=== PATIENT | male | born 1940 | race Hispanic/Latino ===

== ENCOUNTER 2020-08-24 05:40 | Day surgery (SDC) | payer MEDICARE, OTHER ==
[~2020-08-24] VITALS: Ht 162.6 cm; Wt 72.4 kg
[~2020-08-24 05:40] MED LIST: LEVOTHYROXINE75 MCG PO; LOSARTAN POTAS100 MG PO; MULTIPLE VITAM1 EAC1 PO; OMEPRAZOLE20 MG PO
[2020-08-24] MEDS ORDERED: VITAMIN D3 COM1 EACH PO (05:57)
--- NOTE | 2020-08-24 08:58 | NUR ---
08/24/20 0858 Elva Mcdermott 0835 PT ARRIVED IN PACU NON RESPONSIVE TO NOXIOUS STIMULI. RN HOLDING AIRWAY OPEN WITH CHIN LIFT. 0845 PT REACTIVE. 0846 REPOSITIONED TO R SIDE PER DR ORDERS FOR 20 MINUTES. 0858 NO C/O'S AT THIS TIME.
--- NOTE | 2020-08-24 09:15 | NUR ---
PT ARRIVED FROM PACU. REPORT RECIEVED FROM LURDES Olivares RN. PT LAYING ON LEFT SIDE IN LOCKED AND LOWERED BED. SIDE RAILS UP. AT THE BEDSIDE. CALL LIGHT WITHIN REACH.
--- NOTE | 2020-08-24 09:26 | NUR ---
PT MOVED TO STOMACH.
--- NOTE | 2020-08-24 09:44 | NUR ---
PT USED CALL LIGHT FOR NEED TO URINATE. MOVED PT TO BACK, REMOVED CATHETER AND MITOMYCIN. PT GOWN CHANGED. RESTING IN LOCKED AND LOWERED BED. SIDE RAILS UP, CALL LIGHT WITHIN REACH. AT THE BEDSIDE.
--- NOTE | 2020-08-24 09:58 | NUR ---
PT ALERT, ORIENTED AND SUPPORTED BY HIS . SPOUSE HAS FEAR OF COVID IN HOSP AND IS RATHER ANXIOUS BEING HERE TODAY.ANSWERED QUESTIONS, GAVE ENCOURAGEMENT AND PT REQUESTED PRAYER. WILL FOLLOW NEEDED
[2020-08-24] MEDS ORDERED: BACTRIM DS TAB1 EACH PO (10:34)
[2020-08-24] MEDS ORDERED: NORCO 5-325 TA1 EACH PO (10:35)
--- NOTE | 2020-08-24 10:57 | NUR ---
PT LEFT THE UNIT VIA WHEELCHAIR. TRANSFERRED IDEPENDENTLY FROM WHEELCHAIR TO VEHICLE WITH NO COMPLICATIONS. PROVIDED TRANSPORTATION
--- NOTE | 2020-08-24 18:19 | OR ---
[facility] [address] [facility] [place] [address] Signed DATE OF OPERATION: 08/24/2020 SURGEON: Alok Humphries MD PREOPERATIVE DIAGNOSES: 1. Gross hematuria. 2. 1.5 cm papillary bladder mass. POSTOPERATIVE DIAGNOSES: 1. Gross hematuria. 2. 1.5 cm papillary bladder mass. NAME OF THE PROCEDURES: 1. Transurethral resection of bladder tumor-small. 2. Intravesical instillation of mitomycin chemotherapy. ANESTHESIA: General. ESTIMATED BLOOD LOSS: Minimal. COMPLICATIONS: None. SPECIMENS: Fragments of papillary bladder tumor located just superior to the right ureteral orifice sent to pathology for evaluation. DRAINS: A 20-Paraguayan two-way Machado catheter, capped and taped to the patient's abdomen after and instillation of mitomycin. INDICATIONS FOR PROCEDURE: Mr. Wharton is a very pleasant 80-year-old gentleman, who presented to my clinic a couple of months ago with complaints of intermittent bouts of painless gross hematuria. Urinary cytology at that time was negative. He underwent a diagnostic cystoscopy, which revealed the presence of a 1.5 cm papillary mass located just superior to the right ureteral orifice. No other masses were noted at the time. He presents today to undergo definitive treatment of the lesion via resection, along with instillation of the Electronically Signed By: ALKO HUMPHRIES MD 08/24/20 1819 PATIENT NAME: SANDIE WHARTON OPERATIVE REPORT DATE OF : 42 REPORT #: [id number] PHYSICIAN: ALOK HUMPHRIES MD PCP: BOOM ALEMAN MD REPORT IS CONFIDENTIAL AND NOT TO BE RELEASED WITHOUT AUTHORIZATION [facility] [address] [place], [place] [address] Signed intravesical mitomycin. OPERATIVE FINDINGS: 1. On cystoscopy, there is a 1.5 cm pedunculated mass located just superior to the right ureteral orifice. This mass was resected using a 24-Paraguayan bipolar loop without difficulty. 2. IV fluorescein dye was used to identify efflux from the right ureteral orifice. Ultimately, there was more than adequate efflux noted from the right ureteral orifice after resection, so the decision was made to not place an indwelling ureteral stent on that side. 3. At the end of the resection, a 20-Paraguayan two-way Machado catheter was inserted into the patient's bladder and was mainly irrigated. 40 mg of mitomycin in 20 mL of solution was then instilled into the patient's bladder via the 20-Paraguayan Machado catheter. The installation took place at 8:26 a.m. The catheter was then capped and then taped to the patient's abdomen. DESCRIPTION OF PROCEDURE: After informed consent was obtained, the patient was taken back to the operating room. He was transferred from the [facility] to the operating room table, where general anesthesia was induced. He was placed in the dorsal lithotomy position. His genitalia prepped and draped in a standard sterile fashion. The patient's urethra was then dilated from 14-Paraguayan to 28-Paraguayan using Kaycee sounds without difficulty. A 26-Paraguayan sheath was then inserted through the patient's urethra and into the bladder using a visual obturator. Once the sheath was placed, the obturator was switched out for the resectoscope. Thorough diagnostic cystoscopy was performed. Attention was turned to the pedunculated papillary mass located just superior to the right ureteral orifice. A 24-Paraguayan bipolar loop was then used to resect the mass. Resection was performed without difficulty. All the while, the location of the right ureteral orifice was noted and the UO was avoided. Once the resection was complete, the area was cauterized in order to obtain hemostasis. The area near the right ureteral orifice was not cauterized to prevent any accidental fusion of the right ureteral orifice. The patient's bladder was then irrigated with a Tank to obtain all of the specimen. The fragments of tumor were then placed in a specimen cup and sent to pathology for evaluation. IV fluorescein dye was administered in order to more adequately visualize efflux from the right ureter. Again, I was able to visually watch multiple efflux from the right ureteral orifice. I therefore made the decision not to insert an indwelling right ureteral stent. Once I was satisfied that hemostasis had been achieved, and maintained, and all the bladder tumor was removed, the 26-Paraguayan sheath was then removed from the patient's bladder. I then inserted a 20-Paraguayan two-way Machado catheter into the patient's bladder and again manually irrigated the bladder. I then instilled the 40 mg in 20 mL of mitomycin into the patient's bladder using the indwelling Machado catheter. The catheter was then capped and then secured to the patient's abdomen. The procedure was then terminated. The Electronically Signed By: ALOK HUMPHRIES MD 08/24/20 1152 PATIENT NAME: SANDIE WHARTON OPERATIVE REPORT DATE OF : 42 REPORT #: [id number] PHYSICIAN: ALOK HUMPHRIES MD PCP: BOOM ALEMAN MD REPORT IS CONFIDENTIAL AND NOT TO BE RELEASED WITHOUT AUTHORIZATION [address] [address] Signed patient tolerated the procedure well without any complication. He will now be transferred to the postanesthesia care unit in stable condition. DISPOSITION: I discussed the details of today's procedure with the patient's and answered all of her questions. The catheter will be removed at the end of the mitomycin therapy. He will then be given a voiding trial to be sure he voids prior to discharge. He will be sent home today with [place] 5/325 dispensed #20 as needed for pain along with Bactrim double strength one tablet p.o. b.i.d. for a total of 7 days. He has been scheduled to return to the clinic on September 21 at 4 p.m. for postop check. 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 MD KAITA Muro/LUZ /[id number] Copies: ~ Electronically Signed By: ALOK HUMPHRIES MD 08/24/20 1819 PATIENT NAME: SANDIE WHARTON OPERATIVE REPORT DATE OF : 42 REPORT #: [id number] PHYSICIAN: ALOK HUMPHRIES MD PCP: BOOM ALEMAN MD REPORT IS CONFIDENTIAL AND NOT TO BE RELEASED WITHOUT AUTHORIZATION
--- NOTE | 2020-08-26 11:25 | PATH ---
[facility] [address] [facility], [place] [address] Signed SPECIMEN(S): A BLADDER TUMOR, SUPERIOR TO RUQ SPECIMEN SOURCE: A. BLADDER TUMOR, SUPERIOR TO RUQ CLINICAL HISTORY: Pre: Gross hematuria. Post: Bladder tumor. FINAL PATHOLOGIC DIAGNOSIS: Bladder tumor, superior to right upper quadrant, transurethral resection: - Noninvasive high-grade papillary urothelial carcinoma: - Lamina propria invasion: Not identified. - Muscularis propria (detrusor muscle): Present and is not involved by the carcinoma. - Lymphovascular invasion: Not identified. - See comment. COMMENT: As part of [facility]' Quality Improvement Program, this case was reviewed by another member of our pathology staff. The results are called to Dr. Harris' office by [facility]'s client services department on 08/26/2020. Based on the biopsy tissue present, the features correspond to a pathologic stage of attorney lawyer. The patient's most recent voided urinary cytology from 05/27/2020 ([id number]) was reviewed and confirmed to be absent of cytologic features of high grade urothelial neoplasia. NAL:CANDE:cml:C1NR MICROSCOPIC EXAMINATION: Histologic sections of all submitted blocks are examined by light microscopy. These findings, together with the gross examination, support the pathologic diagnosis. GROSS DESCRIPTION: The specimen, labeled "DM," and designated on the requisition "bladder tumor superior to right uo," is received in formalin and consists of multiple fragments of pink-herman soft tissue (2.0 x 1.7 x 0.5 cm in aggregate). The specimen is submitted entirely in cassette (A1). AC (under the direct supervision of a pathologist) The Gross Description was prepared using a voice recognition system. The PATIENT NAME: SANDIE WHARTON PATHOLOGY DATE OF : 42 REPORT #: [id number] PHYSICIAN: DE[facility]O PATHOLOG[facility] PCP: BOOM ALEMAN MD REPORT IS CONFIDENTIAL AND NOT TO BE RELEASED WITHOUT AUTHORIZATION [facility] [address] [place] [address] Signed report was reviewed for accuracy; however, sound-alike word errors, addition and/or deletions may occur. If there is any question about this report, please contact Client Services. PERFORMING LABORATORY: The technical component [place] [address] (Topper Packer: Cande Snyder MD; CLIA# [id number]). Professional interpretation was performed by [facility], [address] [address] (CLIA# [id number]). Diagnostician: Omayra Wylie MD Pathologist Electronically Signed 08/26/2020 Copies: ~ PATIENT NAME: SANDIE WHARTON PATHOLOGY DATE OF : 42 REPORT #: [id number] PHYSICIAN: [facility] PCP: BOOM ALEMAN MD REPORT IS CONFIDENTIAL AND NOT TO BE RELEASED WITHOUT AUTHORIZATION
== END 2020-08-24 10:50 | disposition home or self-care (01) ==
LOC: DS 05:40 → OPS 05:40 → DS 06:45 → OPS 06:45
PROVIDERS: ATTEND Urology
PROC: 0TBB8ZZ Excision of Bladder, Via Natural or Artificial Opening Endoscopic (ICD-10-PCS; principal; 2020-08-24 06:45)
DX: C67.6 Malignant neoplasm of ureteric orifice (principal); R31.0 Gross hematuria; I10 Essential (primary) hypertension; E03.9 Hypothyroidism, unspecified; K21.00 Gastro-esophageal reflux disease with esophagitis, without bleeding; E55.9 Vitamin D deficiency, unspecified; Z79.899 Other long term (current) drug therapy
CPT/HCPCS: 00914; 88307; J0696; J1100; J1885; J2405; J2704; J3010; J7121; J9280

== ENCOUNTER 2020-10-19 05:50 | Day surgery (SDC) | payer MEDICARE, OTHER ==
[~2020-10-19] VITALS: Ht 162.6 cm; Wt 75.0 kg
[~2020-10-19 05:50] MED LIST changes: +BACTRIM DS TAB1 EACH PO; +NORCO 5-325 TA1 EACH PO; +VITAMIN D3 COM1 EACH PO
--- NOTE | 2020-10-19 08:09 | NUR ---
PT ALERT, ORIENTED AND SUPPORTED BY HIS JANE. QUICKLY HAD PRAYER AND GAVE ENCOURAGEMENT TO PT AND , OR STAFF WAITING. WILL FOLLOW NEEDED
--- NOTE | 2020-10-19 09:10 | NUR ---
10/19/20 0910 Elva Mcdermott 0805 PT ARRIVED IN PACU SLEEPY WITH NO C/O/S. STENT TAPED TO PENIS SHAFT WITH STERI STRIPS. 0850 OXYGEN REMOVED. SATS 98% ON RA. TALKING WITH STAFF. NO C/O'S. 0905 TO DS. REPORT GIVEN TO CAPRI.
--- NOTE | 2020-10-19 09:13 | NUR ---
PATIENT BACK TO DAYSURGERY FROM PACU. BEDSIDE REPORT FROM LURDES FAROOQ. VISUALIZED STENT TAPED DOWN AND IN PLACE, NO DRAINAGE FROM URETHRA. PATIENT AWAKE AND ORIENTED. NO REPORTED PAIN OR NAUSEA. PROVIDED ICE WATER AND SNACKS. CALL LIGHT WITHIN REACH.
[2020-10-19] MEDS ORDERED: OXYCODONE HCL5 MG PO (09:22)
[2020-10-19] MEDS ORDERED: CIPRO500 MG PO (09:22)
--- NOTE | 2020-10-19 10:01 | NUR ---
BLOOD PRESSURE TAKEN ON LEFT ARM AFTER HIGH READING ON RIGHT: 177/93. PATIENT EDUCATED ON FOLLOWING UP WITH PCP REGARDING ELEVATED BLOOD PRESSURE. PATIENT DENIES HEADACHE. SPOUSE IS PRESENT FOR THIS EDUCATION WELL DISCHARGE INSTRUCTIONS AND BOTH VERBALIZE UNDERSTANDING. PATIENT VOIDS 225 ML BLOODY URINE AND AMBULATES WELL. HE IS GETTING DRESSED IN THE PRESENCE OF HIS SPOUSE.
--- NOTE | 2020-10-19 11:16 | OR ---
[facility] [address] [facility], [place] [address] Signed DATE OF OPERATION: 10/19/2020 SURGEON: Alok Humphries MD PREOPERATIVE DIAGNOSIS: High-grade superficial bladder cancer, status post TURBT. POSTOPERATIVE DIAGNOSES: High-grade superficial bladder cancer, status post TURBT. PROCEDURES: 1. Diagnostic cystoscopy with right retrograde pyelogram. 2. Transurethral resection of bladder tumor - small. 3. Cystoscopy with insertion of indwelling right ureteral stent. ANESTHESIA: General. ESTIMATED BLOOD LOSS: Minimal. COMPLICATIONS: None. SPECIMENS: Fragments of tissue from previous resection site, sent to pathology for evaluation. DRAINS: A 6 x 24 cm double-J ureteral stent inserted into the right ureter. INDICATIONS FOR PROCEDURE: Mr. Wharton is a very pleasant 80-year-old gentleman, who I recently diagnosed with high-grade superficial bladder tumor after undergoing initial TURBT in early August after undergoing cystoscopy for a gross hematuria workup. Cystoscopy at this time revealed 1.5 cm so sized papillary lesion present just superior to the right ureteral orifice. He has undergone TURBT with instillation of mitomycin in early August 2020. He presents today for standard repeat TURBT per protocol. He has been doing well since his initial resection and has no complaints. FINDINGS: Electronically Signed By: ALOK HUMPHRIES MD 10/19/20 1116 PATIENT NAME: SANDIE WHARTON OPERATIVE REPORT DATE OF : 42 REPORT #: [id number] PHYSICIAN: ALOK HUMPHRIES MD PCP: BOOM ALEMAN MD REPORT IS CONFIDENTIAL AND NOT TO BE RELEASED WITHOUT AUTHORIZATION [facility] [address] [place], [place] [address] Signed 1. On cystoscopy, there is a diffuse grade 2 bladder wall trabeculation. Bilateral ureteral orifices are in their normal anatomic location effluxing clear urine. The right UO has an abnormal configuration secondary to his initial resection. 2. Right retrograde pyelogram reveals a very small kink in the distal right ureter; however, there was no evidence of any filling defects or any indication of tumor present within the right ureter. 3. On closer inspection, there was velvety appearance to the area just to the left of his previous resection site. This appears to be very suspicious for tumor recurrence. This was resected and placed in a specimen cup to be sent for evaluation. 4. The remaining area around the resection site was then cauterized for both cancer control and to establish hemostasis. The right ureteral orifice remained free of any iatrogenic damage via cauterization. In fact, I cauterized all the way around the ureteral orifice, but kept the ureteral orifice intact. At the end of the procedure, a 6 x 24 cm double-J ureteral stent was inserted into the right ureter under direct visualization without difficulty. DESCRIPTION OF PROCEDURE: After informed consent was obtained, the patient was taken back to the operating room. He was transferred from the [facility] to the operating room table, where general anesthesia was induced. He was placed in the dorsal lithotomy position and his genitalia were prepped and draped in a standard sterile fashion. Using a 30-degree lens on a 23-1/2-Armenian introducer rigid cystoscope was inserted through his urethra into his bladder under direct visualization. Panendoscopic views of bladder then obtained, please see above findings. Attention was turned to the right ureteral orifice. A cone-tipped catheter was then used to perform a right retrograde pyelogram. I then removed the cystoscope and dilated the patient's urethra using [place] sounds from 20-Armenian to 28-Armenian. A visual obturator was used in to insert a 26-Armenian sheath into the patient's bladder. With the sheath in place, the resectoscope was then inserted. I then resected this area of erythema just to the left of his previous resection site. This was very close to the right ureter, however, did not involve the right ureteral orifice. Once I resected the entire area of erythema, which measured around 1 cm, I cauterized the biopsy site as well as the edges and the any remaining erythema around the right ureteral orifice. Once hemostasis was achieved and there was no additional visualized tumor, I removed the resectoscope. I then reinserted a standard cystoscope with a 22.5-Armenian introducer. I cannulated the right ureteral orifice using a 0.035 Sensor wire. Proper placement of the wire was confirmed on fluoroscopy. Over the wire, I passed a 6 x 24 cm double-J ureteral stent into the right ureteral orifice under direct visualization. The stent passed easily. The proximal and distal coils were seen on both fluoroscopy and cystoscopy at the end of the procedure. The patient's bladder was then drained and the cystoscope was removed. The procedure was then terminated. The patient tolerated the procedure well without any complication. He will now be transferred to the Postanesthesia Care Unit in stable condition. Electronically Signed By: ALOK HUMPHRIES MD 10/19/20 1116 PATIENT NAME: SANDIE WHARTON OPERATIVE REPORT DATE OF : 42 REPORT #: [id number] PHYSICIAN: ALOK HUMPHRIES MD PCP: BOOM ALEMAN MD REPORT IS CONFIDENTIAL AND NOT TO BE RELEASED WITHOUT AUTHORIZATION [address], [place] [address] Signed DISPOSITION: I discussed the details of today's procedure with the patient's and answered all of her questions. I told her that there did appear to be an area of tumor recurrence just superior and to the left to the right ureteral orifice, this was excised today successfully. He will be sent home today with oxycodone 5 mg p.o. q.4 to 6 hours p.r.n. pain, dispense #20, along with Cipro 500 mg p.o. b.i.d. for a total of 7 days. He will remove the indwelling ureteral stent using the string attached on October 24, 2020. I explained to his today that the stent was mainly placed because of this small kink in the distal right ureter, and in hopes to straighten out the distal ureter. Otherwise, there is no evidence of any hydronephrosis or calyceal dilation of the right kidney. Once he returns for his postoperative evaluation in 6 weeks, we will get him set up at that time to begin BCG induction therapy approximately 8 weeks postoperatively. MD KATIA Muro/LUZ /[id number] Copies: ~ Electronically Signed By: ALOK HUMPHRIES MD 10/19/20 1116 PATIENT NAME: SANDIE WHARTON OPERATIVE REPORT DATE OF : 42 REPORT #: [id number] PHYSICIAN: ALOK HUMPHRIES MD PCP: BOOM ALEMAN MD REPORT IS CONFIDENTIAL AND NOT TO BE RELEASED WITHOUT AUTHORIZATION
--- NOTE | 2020-10-19 13:05 | NUR ---
LE 1005: PATIENT TRANSFERS HIMESELF TO THE WHEELCHAIR AND THEN TO PERSONAL VEHICLE AND HE TOLERATES THAT WELL.
--- NOTE | 2020-10-19 18:19 | NUR ---
LE 0945: PATIENT IS UP TO THE BATHROOM WITH MY STANDBY. PATIENT AMBULATES WELL AND VOIDS 150 ML BLOODY URINE. PATIENT IS BACK IN BED. CALL LIGHT WITHIN REACH.
--- NOTE | 2020-10-20 14:14 | PATH ---
[facility] [address] [place], [place] [address] Signed SPECIMEN(S): A BLADDER LESION SPECIMEN SOURCE: A. BLADDER LESION CLINICAL HISTORY: Bladder lesion post-TURBT. Bladder cancer. 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 - Mild urothelial atypia present, favor reactive. COMMENT: As part of [facility]' Quality Improvement Program, this case was reviewed by another member of our pathology staff (CHAD). NAL:cml:C2NR MICROSCOPIC EXAMINATION: Histologic sections of all submitted blocks are examined by light microscopy. These findings, together with the gross examination, support the pathologic diagnosis. GROSS DESCRIPTION: The specimen, labeled "DM, bladder lesion," is received in formalin and consists of irregular shaped, pink-herman, rubbery tissue fragments that aggregate measure 0.8 x 0.8 x 0.3 cm. Specimen is entirely submitted in cassette (A1). JS (under the direct supervision of a pathologist) The Gross Description was prepared using a voice recognition system. The report was reviewed for accuracy; however, sound-alike word errors, addition and/or deletions may occur. If there is any question about this report, please contact Client Services. PERFORMING LABORATORY: The technical component was performed by [facility], [address] [place] [address] (Candle Maker: Cande Snyder MD; CLIA# [id number]). [facility], [address] [address] (CLIA# [id number]). PATIENT NAME: SANDIE WHARTON PATHOLOGY DATE OF : 42 REPORT #: [id number] PHYSICIAN: [facility] PCP: BOOM ALEMAN MD REPORT IS CONFIDENTIAL AND NOT TO BE RELEASED WITHOUT AUTHORIZATION [facility] [address] [place] [id number] Signed Diagnostician: Omayra Wylie MD Pathologist Electronically Signed 10/20/2020 Copies: ~ PATIENT NAME: SANDIE WHARTON PATHOLOGY DATE OF : 42 REPORT #: [id number] PHYSICIAN: [facility] PATH[facility] PCP: BOOM ALEMAN MD REPORT IS CONFIDENTIAL AND NOT TO BE RELEASED WITHOUT AUTHORIZATION
== END 2020-10-19 10:10 | disposition home or self-care (01) ==
LOC: OPS 05:50 → DS 05:50 → OPS 06:45 → DS 06:45 → OPS 10:10
PROVIDERS: ATTEND Urology
PROC: 0TBB8ZX Excision of Bladder, Via Natural or Artificial Opening Endoscopic, Diagnostic (ICD-10-PCS; principal; 2020-10-19 06:45)
PROC: 0T768DZ Dilation of Right Ureter with Intraluminal Device, Via Natural or Artificial Opening Endoscopic (ICD-10-PCS; 2020-10-19 06:45)
DX: N30.81 Other cystitis with hematuria (principal); K21.00 Gastro-esophageal reflux disease with esophagitis, without bleeding; I10 Essential (primary) hypertension; E03.9 Hypothyroidism, unspecified; Z79.890 Hormone replacement therapy; Z79.899 Other long term (current) drug therapy; Z20.828 Contact with and (suspected) exposure to other viral communicable diseases
CPT/HCPCS: 00912; 74420; 88307; C1769; C2617; J0690; J1100; J1885; J2405; J2704; J3010; J7121; Q9967

== ENCOUNTER 2023-09-04 05:40 | Day surgery (SDC) | payer MEDICARE, OTHER ==
[2023-08-30 09:17] VITALS: BP 150/88
[~2023-09-04] VITALS: Ht 162.6 cm; Wt 76.8 kg
[~2023-09-04 05:40] MED LIST changes: +CIPRO500 MG PO; +HYZAAR 100-12.1 EACH PO; -LOSARTAN POTAS100 MG PO; +OSTEO BI-FLEX1 EAC2 PO; +OXYCODONE HCL5 MG PO
[2023-09-04 05:55] VITALS: BP 155/94
--- NOTE | 2023-09-04 06:09 | NUR ---
COMFORTABLE NO QUESTIONS.
--- NOTE | 2023-09-04 07:10 | NUR ---
PT IN OVERALL GOOD SPIRITS. FEMALE MUCK MINER BLASTING IN ROOM. BOTH DENIED NEEDS AT THIS TIME. CONSENTED TO PRAYER. PRAYED FOR SUCCESSFUL PROCEDURE AND ABIDING PEACE.
--- NOTE | 2023-09-04 07:16 | NUR ---
DENIES ANY C/O AWAITING DR HUMPHRIES. TESTING AND REGULATING TECHNICIAN HAs been in to talk with pt.
--- NOTE | 2023-09-04 09:37 | NUR ---
09/04/23 0937 Deepika Fernandez 0924- PT ARRIVES TO PACU, SUPINE POSITION WITH OPA IN PLACE. MAINTAINING AIRWAY WITH JUST OPA, O2 AT 6L PER MASK. CUTLER CATHETER IN PLACE WITH CBI RUNNING, CLEAR FLUID IN OUTPUT DRAINING. ABD SOFT, NON DISTENED. ALL MONITORS APPLIED. LR INFUSING TO RW IV. BREATHING EVEN AND NON LABORED. WILL CONTINUE TO MONITOR. 0936- PT STARTED TO SWALLOW AND TAKE DEEP BREATHS, OPENS EYES TO VERBAL STIMULI. OPENS MOUTH TO REMOVE OPA, O2 REMAINS IN PLACE AT THIS TIME. DENIES PAIN AND NAUSEA.
--- NOTE | 2023-09-04 10:11 | NUR ---
PT TO FLOOR WITH CAPRI THOMSON. PT AWAKE BUT DROWSY. MINOR DISCOMFORT WITH THE CUTLER BUT NO PAIN. IN ROOM. CBI TURNED DOWN URINE IS COMPLETELY CLEAR. FINISHING IVF FROM SURG. CALL LIGHT IN REACH.
[2023-09-04 10:13] VITALS: BP 141/78
[2023-09-04] MEDS ORDERED: LEVOFLOXACIN500 MG PO (10:54)
[2023-09-04] MEDS ORDERED: OXYCODONE HCL5 MG PO (10:55)
--- NOTE | 2023-09-04 11:34 | NUR ---
pt took meds. vitals assessed. catheter draining clear. no abnormal findings. no other cares needed or requested at this time. call light within reach
--- NOTE | 2023-09-04 12:08 | OR ---
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 NAMES OF PROCEDURES: 1. Diagnostic cystoscopy. 2. Urethral dilation using [place]ell sounds from 18-Venezuelan to 28-Venezuelan. 3. Transurethral resection of the prostate. ANESTHESIA: General. ESTIMATED BLOOD LOSS: 50 mL. COMPLICATIONS: None. SPECIMENS: Prostate chips sent to pathology for evaluation. DRAINS: A 22-Venezuelan three-way Machado catheter, connected to continuous bladder irrigation. INDICATIONS FOR PROCEDURE: Mr. Wharton is a very pleasant 83-year-old gentleman who is well-known to me. He has a history of bladder cancer and has undergone a TURBT x2 with multiple cystoscopies thereafter. He has remained free of recurrence from a disease standpoint. 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 grade 3 bladder wall trabeculation. For the most part, Geoffrey reports an adequate force of stream. However, he does experience occasional urgency and frequency at times. After discussion of the risks and benefits of TURP including hemorrhage and urinary incontinence, the patient has agreed to proceed. Electronically Signed By: ALOK HUMPHRIES MD 09/04/23 1208 PATIENT NAME: GEOFFREY WHARTON OPERATIVE REPORT DATE OF : 42 REPORT #: [id number] PHYSICIAN: ALOK HUMPHRIES MD PCP: NIVIA MENDENHALL MD REPORT IS CONFIDENTIAL AND NOT TO BE RELEASED WITHOUT AUTHORIZATION [address] [address] Signed OPERATIVE FINDINGS: 1. On cystoscopy, there was no evidence of any suspicious masses, lesions, or stones. Namely, there was no evidence of any suspicious lesions consistent with bladder tumor recurrence today. His left ureteral orifice is present in its normal anatomic location. The right ureteral orifice is golf-hole in appearance which is consistent with a prior resection of the ureteral orifice performed for his bladder cancer. 2. Digital rectal examination reveals a 50-60 g prostate that is soft, smooth and symmetric with no focal nodules. 3. The patient's prostate was resected transurethrally today using a 24-Venezuelan bipolar loop. The resection was performed down to the level of the verumontanum circumferentially. 4. At the end of the procedure, a 22-Venezuelan three-way Machado catheter was inserted into the patient's bladder, connected to continuous bladder irrigation. DESCRIPTION OF PROCEDURE: After informed consent was obtained, the patient was taken back to the operating room. He was transferred from the [facility] to the operating room table, where general anesthesia was induced. He was placed in the dorsal lithotomy position and his genitalia were prepped and draped in standard sterile fashion. His urethral meatus was dilated using [place] sounds from 18-Venezuelan to 28-Venezuelan for prevention of urethral stricture associated with TURP. Diagnostic cystoscopy was initially performed using a 30-degree lens on a 22.5 Venezuelan introducer. Please see above findings. I removed the cystoscope and then injected 60 mL of sterile lubricant into the patient's urethra. This was followed by placement of the 26-Venezuelan sheath using a visual obturator. The visual obturator was then removed and exchanged for a resectoscope with a 24-Venezuelan loop. I evaluated the bilateral ureteral orifices and their location with respect to the bladder neck. They were noted to be not anywhere near the area of resection. I then began resection of the patient's large median lobe. Once this was excised, I then resected the left and lateral lobes of the prostate down to the level of verumontanum. I also circumferentially resected the bladder neck. All the while adequate hemostasis was achieved and maintained via electrocautery. Throughout the procedure, the patient's bladder was emptied of prostate chips using a Tank syringe. After majority of tissue was resected, I did switch from the loop to the bipolar button and smoothed out the prostatic urethra and again gained better hemostasis towards the end of the resection. There was a small area of bleeding on the left proximal lobe of the prostate that was probably a venous sinus. I cauterized this as best as I could. At the end of the resection, I was satisfied with my hemostasis and all of the chips had been extracted from the patient's bladder. I removed the resectoscope and placed a 0.035 Sensor wire through the sheath and into the patient's bladder. The sheath was then removed fully intact. Over the wire, I passed a 22-Venezuelan three-way Machado catheter into the patient's bladder. The catheter passed without difficulty. The balloon was filled with 30 mL of Electronically Signed By: ALOK HUMPHRIES MD 09/04/23 1208 PATIENT NAME: GEOFFREY WHARTON OPERATIVE REPORT DATE OF : 42 REPORT #: [id number] PHYSICIAN: ALOK HUMPHRIES MD PCP: NIVIA MENDENHALL MD REPORT IS CONFIDENTIAL AND NOT TO BE RELEASED WITHOUT AUTHORIZATION [address], [place] [address] Signed sterile water. I then mainly irrigated the catheter multiple times to get any remaining blood clots out from the bladder. Because of this bleeding of the venous sinus that was not stopping with cauterization, I instructed Anesthesia to administer one dose of TXA to the patient. Once the catheter was connected to continuous bladder irrigation, a digital rectal examination was performed. The procedure was then terminated. The patient tolerated the procedure well without any complication. He will now be transferred to the postanesthesia care unit in stable condition. DISPOSITION: I discussed the details of today's procedure with the patient's and answered all of her questions. He will now head to the PACU and then once he wakes up there, he will be admitted overnight to the Med-Surg unit for management of his continuous bladder irrigation. His diet will be restarted and he will be given pain control as needed. His CBI will be slowly weaned off by tomorrow morning where he will be discharged to home with a Machado catheter gravity drainage. He has been scheduled to undergo a voiding trial this at 11:00 a.m. He has also been scheduled to see me for his 1st postop followup on October 19, 2023. MD KATIA Muro/LUZ /[id number] Copies: ~ Electronically Signed By: ALOK HUMPHRIES MD 09/04/23 1208 PATIENT NAME: GEOFFREY WHARTON SUYAPA OPERATIVE REPORT DATE OF : 42 REPORT #: [id number] PHYSICIAN: ALOK HUMPHRIES MD PCP: NIVIA MENDENHALL MD REPORT IS CONFIDENTIAL AND NOT TO BE RELEASED WITHOUT AUTHORIZATION
[2023-09-04 12:19] VITALS: BP 166/80
--- NOTE | 2023-09-04 12:37 | NUR ---
pt is currently in bed watching tv. vitals assessed. no abnormalities. pt morales drainage was at 1725ml. clear color. no other cares requested or needed. call light within reach
[2023-09-04 13:26] VITALS: BP 145/90
--- NOTE | 2023-09-04 13:28 | NUR ---
pt is currently eating. vital signs assessed. no other cares needed or requested at this time. call light within reach
--- NOTE | 2023-09-04 14:05 | NUR ---
PATIENT RESTING IN BED.DISCUSSED THE DISCHARGE PLAN WITH PATIENT. IF MEDICALLY STABLE THE PATIENT WILL GO HOME TOMORROW. PATIENT HAS FRIENDS AND FAMILY WHO HELP NEEDED. PATIENT DOES NOT USE DME. PATIENT DRIVES AND IS ABLE TO AFFORD FOOD AND RENT. PATIENT DOES NOT HAVE DC NEEDS AT THIS TIME. DC ELECT[employer]ICS WARFARE TECHNICIAN WILL MONITOR NEEDED.
--- NOTE | 2023-09-04 15:22 | NUR ---
ASSESSMENT DONE. NO ABNORMAL FINDINGS. bLADDER IRRIGATION DRAINAGE IS LIGHT PINK. 2170 MLS RECORDED. PT COMPLAINED OF PAIN DUE TO PROSTATE SURGERY AND WAS GIVEN PAIN MEDICATION HE REQUESTED. FAMILY IS CURRENTLY IN ROOM. NO OTHER CARES OR REQUESTS AT THIS TIME. CALL LIGHT WITHIN REACH
--- NOTE | 2023-09-04 17:22 | NUR ---
ROUNDED WITH DR HUMPHRIES. PT AWAKE AND WATCHING TV. DENIES MUCH PAIN, JUST SOME DISCOMFORT. URINE LIGHT PINK ON SLOW DRIP. URINE OUTPUT WNL. CHARTED I\O. PT NOW EATING DINNER.
[2023-09-04 18:07] VITALS: BP 134/80
--- NOTE | 2023-09-04 19:21 | NUR ---
REPORT RECIEVED FROM SINDHU RN, PATIENT LAYING IN THE BED. Pt STATES NO NEEDS AT THIS TIME. CALL LIGHT WITH IN REACH.
[2023-09-04 21:30] VITALS: BP 140/71
--- NOTE | 2023-09-04 21:48 | NUR ---
VITAL SIGNS AND ASSESSMENT DONE. CUTLER EMPTIED. VERY LIGHT PINK URINE IN TUBE AND BAG. CBI REDUCED TO A SLOW DRIP. CATHETER CARE DONE. IV ASSESSED AND FLUSHED, WNL. CALL LIGHT WITH IN REACH. NO FURTHER NEEDS AT THIS TIME.
--- NOTE | 2023-09-04 23:24 | NUR ---
PATIENT RESTING WITH EYES CLOSED. HR AT 76. CALL LIGHT IN REACH. NO FURTHER NEEDS AT THIS TIME.
[2023-09-05 02:28] VITALS: BP 128/63
--- NOTE | 2023-09-05 02:45 | NUR ---
VITAL SIGNS AND ASSESSMENT DONE. Pt DENIES ANY PAIN. CBI CLAMPED. URINE LIGHT PINK. CALL LIGHT WITH IN REACH. NO FURTHER NEEDS AT THIS TIME.
--- NOTE | 2023-09-05 04:18 | NUR ---
PATIENT RESTING IN THE BED WITH EYES CLOSED. HR AT 76. CALL LIGHT WITH IN REACH. NO FURTHER NEEDS AT THIS TIME.
[2023-09-05 06:04] VITALS: BP 134/68
--- NOTE | 2023-09-05 06:13 | NUR ---
PATIENT RESTING IN THE BED. VS AND I&O'S DONE. IV ASSESSED AND FLUSHED, WNL. CUTLER EMPTIED. CALL LIGHT WITH IN REACH. NO FUTHER NEEDS AT THIS TIME.
--- NOTE | 2023-09-05 07:38 | NUR ---
RECIEVED REPORT FROM FLIGHT INSPECTOR RN. PATIENT IS AWAKE AND BREATHING IS EVEN AND UNLABORED. PATIENT SITTING UPRIGHT IN THE BED. PATIENT STATED NO FURTHER NEEDS AT THIS TIME. PATIENT CALL LIGHT AND PERSONAL BELONGINGS ARE WITHIN REACH.
[2023-09-05 08:14] VITALS: BP 164/82
[2023-09-05] MEDS ORDERED: TRIAMCINOLONE A15 G2 TOP (08:15)
[2023-09-05] MEDS ORDERED: FLOMAX0.4 MG PO (08:15)
--- NOTE | 2023-09-05 08:16 | NUR ---
MED REC COMPLETE
[2023-09-05 08:18] VITALS: BP 164/82
--- NOTE | 2023-09-05 08:37 | NUR ---
PATIENT SITTING UPRGHT IN THE BED. ROCHEPIN STARTED IV PIGGYBACK TO NS. 0900 MEDICATIONS ADMINISTERED ACCORDING TO THE EMAR. FULL ASSESSMENT COMPLETE. NO ABNORMALITIES. URINE EFREM TO LIGHT PINK COLOR RELATED TO THE TURP PROCEDURE. NO CLOTS. CBI PORT IS NOW PLUGGED. PATIENT NOW EATING BREAKFAST. PATIENT STATED NO FURTHER NEEDS AT THIS TIME. CALL LIGHT AND PERSONAL BELONGINGS ARE WITHIN REACH.
--- NOTE | 2023-09-05 09:40 | NUR ---
Spoke with pt and his . Both deny needs. Plan is to dc to home today. They have follow up appointment scheduled with Dr. Harris to me[facility] morales on .
--- NOTE | 2023-09-05 10:58 | NUR ---
PATIENT DISCHARGE INSTRUCTIONS GIVEN TO BOTH PATIENT AND THE PATIENTS . AFTER EDUCATION COMPLETED, PATIENT STATED NO QUESTIONS. PATIETNS ASKED TO DEMONSTRATE HOW TO DRAIN THE CATHETER BAG. RN DEMONSTRATED AND PATIENT STATED THEY UNDERSTAND. PATIENT DISCHARGE VITAL SIGNS TAKEN, ALL WERE WITHIN NORMAL. IV REMOVED AND PATIENT EXPERIENCED NO PAIN. CATHER INTACT. PATIENT EDUCATED TO LEAVE COMPRESSION ON FOR 10-15 MINUTES. PATIENT DISCHARGED BY WHEELCHAIR AND GOING HOME WITH THE .
--- NOTE | 2023-09-08 13:15 | PATH ---
[facility] [address] [facility] [place] [place] [address] Signed SPECIMEN(S): A PROSTATE CHIPS (TUR) SPECIMEN SOURCE: A. PROSTATE CHIPS (TUR) CLINICAL HISTORY: BPH with LUTS; malignant neoplasm of trigone of bladder. FINAL PATHOLOGIC DIAGNOSIS: Prostate chips, TUR: - Benign prostatic glandular tissue with stromal and glandular hyperplasia. - Chronic stromal and glandular inflammation. - Urothelium with reactive features and chronic inflammation. JVR:[facility] MICROSCOPIC EXAMINATION: Histologic sections of all submitted blocks are examined by light microscopy. These findings, together with the gross examination, support the pathologic diagnosis. GROSS DESCRIPTION: The specimen, labeled and designated "Chadwick D, " and designated on the requisition "prostate chips," is received in formalin is a 12 g, 6.8 x 5.5 x 2.3 cm aggregate of pink-herman to armijo rubbery soft tissue with admixed red-brown blood clot. The specimen is entirely submitted in ([id number]). FB (under the direct supervision of a pathologist) The Gross Description was prepared using a voice recognition system. The report was reviewed for accuracy; however, sound-alike word errors, addition and/or deletions may occur. If there is any question about this report, please contact Client Services. PERFORMING LABORATORY: Technical component was performed by [facility], [address] [place] [id number] (CLIA# [id number]). Professional interpretation was performed by [facility], [address] [place] [phone] (CLIA#: [id number]). Diagnostician: Yash Cerda MD Pathologist Electronically Signed 09/08/2023 PATIENT NAME: SANDIE WHARTON PATHOLOGY DATE OF : 42 REPORT #: [id number] PHYSICIAN: [facility] PCP: NIVIA MENDENHALL MD REPORT IS CONFIDENTIAL AND NOT TO BE RELEASED WITHOUT AUTHORIZATION [address] [place] [address] Signed Copies: ~ PATIENT NAME: SANDIE WHARTON PATHOLOGY DATE OF : 42 REPORT #: [id number] PHYSICIAN: [facility] PCP: NIVIA MENDENHALL MD REPORT IS CONFIDENTIAL AND NOT TO BE RELEASED WITHOUT AUTHORIZATION
== END 2023-09-05 10:30 | disposition home or self-care (01) ==
LOC: DS 05:40 → MS 05:40 → DS 07:30 → MS 10:04 → DS 09-05 10:30
PROVIDERS: ATTEND Urology
PROC: 0T7D8ZZ Dilation of Urethra, Via Natural or Artificial Opening Endoscopic (ICD-10-PCS; 2023-09-04)
PROC: 0VT08ZZ Resection of Prostate, Via Natural or Artificial Opening Endoscopic (ICD-10-PCS; principal; 2023-09-04 07:30)
DX: N40.1 Benign prostatic hyperplasia with lower urinary tract symptoms (principal); N13.8 Other obstructive and reflux uropathy
CPT/HCPCS: 00910; 88305; C1769; J0690; J0696; J2405; J2704; J3490; J7121; U0002